=== PATIENT | female | born 2000 | race American Indian/Alaskan Native ===

== ENCOUNTER 2021-10-03 04:00 | Emergency (ER) | payer SELFPAY ==
[2021-10-03] MEDS ORDERED: KETOROLAC 10 MG TAB PO ONE (04:42)
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
[2021-10-03 08:48] VITALS: BP 117/77
== END 2021-10-03 08:47 | disposition home or self-care (01) ==
LOC: ED 04:00
DX: S80.811A Abrasion, right lower leg, initial encounter (principal); S00.81XA Abrasion of other part of head, initial encounter; M79.18 Myalgia, other site; Z79.899 Other long term (current) drug therapy; V89.2XXA Person injured in unspecified motor-vehicle accident, traffic, initial encounter; Y93.89 Activity, other specified; Y92.488 Other paved roadways as the place of occurrence of the external cause; Y99.8 Other external cause status
CPT/HCPCS: 36415; 70450; 80320; 99285; G0480